=== PATIENT | female | born 1985 | race Caucasian/White ===

== ENCOUNTER 2018-04-05 16:13 | Observation (INO) ==
[2018-04-05] MEDS ORDERED: *HR* Nalbuphine 10 MG/ML AMPUL IV ONE ×3 (16:23→17:45)
--- NOTE | 2018-04-05 16:33 | Emergency Department Note ---
Disposition Clinical Impression: Spontaneous Disposition: Admitted As Inpatient Condition: Good Referrals: NONE,PCP [Primary Care Provider] - Forms: ED Satisfaction Letter Time of Disposition: 19:31 General Adult HPI - General Chief complaint: ED Vaginal Bleeding Stated complaint: vaginal bleeding, 9 wk preg Time Seen by Provider: 04/05/18 16:19 Source: patient Mode of arrival: ambulatory Limitations: no limitations Nursing Notes Reviewed: Yes Vital Signs Reviewed: Yes - History of Present Illness HPI Narrative: Patient is a 32-year-old female that presents the emergency department with vaginal bleeding and cramping. Patient states that she has been having abdominal cramping and bleeding for the past 2 weeks. States that she has been seen in the emergency department previously and was discharged home. She was seen by OB earlier today and had blood work and an ultrasound performed and was told that there is a blood clot surrounding the fetus. She states that her blood work was otherwise unremarkable. She states that she has been passing a significant amount of blood and clots. Patient states that she has intense abdominal cramping that is excruciating and pain. States that she has soaked multiple pads and has been somewhat lightheaded. Patient denies passing out today but states approximately 2 days ago when she had previously been seen that she had had an episode of syncope. Pain Scale: 10 - Related Data Home Medications Medication Instructions Recorded Confirmed Dha 1 tab PO DAILY 06/20/15 06/20/15 Previous Rx's Medication Instructions Recorded Docusate [Colace] 200 mg PO QPM #30 capsule 06/24/15 Ibuprofen [Motrin] 600 mg PO Q6HR PRN #60 tablet 06/24/15 OxyCODONE/APAP 5/325 [Percocet 1 each PO Q4HR PRN #30 tablet 06/24/15 5/325] Allergies Allergy/AdvReac Type Severity Reaction Status Date / Time No Known Allergies Allergy Verified 04/05/18 16:15 All systems ED: reviewed and negative except as stated. 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 Absent: respiratory distress, wheezes - Cardiovascular Cardiovascular exam: Present: regular rate, normal rhythm, normal heart sounds, +S1, +S2 - Abdominal Exam Abdominal exam: Present: soft, Non-Tender, normal bowel sounds - Neurological Exam Neurological exam: Present: alert, oriented X3 - Psychiatric Psychiatric exam: Present: normal affect, normal mood - Skin Skin exam: Present: warm, dry, intact Course - Reevaluation(s) Reevaluation #1: The patient was over at ultrasound the concrete float maker called this over to the ultrasound suite to show us the patient had been passing large clots the size of oranges. We had the concrete float maker discontinue trying to obtain ultrasound images and bring the patient back to the emergency department. - Consultations Consultation #1: I called and spoke with the on-call nursing laborer hoisting. She spoke with Dr. Hansen and he will come evaluate the patient here in the emergency department. Time: 17:58 Vital Signs Temperature 97.8 F 04/05/18 16:14 Pulse Rate 77 04/05/18 16:14 Respiratory Rate 18 04/05/18 16:14 Blood Pressure 161/89 04/05/18 16:14 O2 Sat by Pulse Oximetry 98 04/05/18 16:14 Temperature 97.8 F 04/05/18 16:19 Pulse Rate 73 04/05/18 19:00 Respiratory Rate 16 04/05/18 18:21 Blood Pressure 111/53 04/05/18 19:00 O2 Sat by Pulse Oximetry 100 04/05/18 18:21 Oxygen Delivery Oxygen Delivery Room Air Medical Decision Making - MDM Narrative Medical decision making narrative: The patient was admitted to the emergency department we will obtain a CBC, BMP, coags, beta hCG and a ultrasound to reevaluate the fetus. She will also be given Nubain for pain here in the ED. there is ongoing spontaneous based on the ultrasound findings. Dr. Mark from OB came and evaluated the patient at bedside and removed one small clot. The fetus was identified within the vaginal canal and being passed at this time. OB will admit the patient for further evaluation and management. - Lab Data Lab results reviewed: Yes I reviewed the patient's lab results. Result diagrams: 04/05/18 16:20 04/05/18 16:20 Lab Results 04/05/18 04/05/18 04/05/18 Range/Units 16:20 16:20 16:20 WBC 9.0 (4.3-11.1) K/mcL RBC 3.85 (3.82-4.97) M/mcL Hgb 11.5 (11.5-15.4) g/dL Hct 33.0 L (35.3-44.9) % MCV 85.7 (83.0-100.0) fL MCH 29.9 (28.0-33.3) pg MCHC 34.8 (31.6-35.5) g/dL RDW 12.7 (11.5-14.5) % Plt Count 214 (140-400) K/mcL MPV 10.3 (9.4-12.4) fL Immature Gran % 0.3 (0-4) % Seg Neutrophils % 77.5 % Lymphocytes % 16.0 % Monocytes % 5.8 % Eosinophils % 0.2 % Basophils % 0.2 % Neutrophils # 6.9 (1.6-8.9) K/mcL Lymphocytes # 1.4 (0.6-4.6) K/mcL Monocytes # 0.5 (0.0-1.3) K/mcL Eosinophils # 0.0 (0.0-0.6) K/mcL Basophils # 0.0 (0.0-0.2) K/mcL PT 11.7 (9.4-12.1) Seconds INR 1.0 APTT 23.6 L (26.0-36.0) Seconds Sodium 135 L (136-145) mEq/L Potassium 3.3 L (3.5-5.1) mEq/L Chloride 103 (98-107) mEq/L Carbon Dioxide 22 L (23-29) mEq/L BUN 9 (6-20) mg/dL Creatinine 0.61 (0.60-1.20) mg/dL Est GFR ( Amer) > 60 (> 60) Est GFR (Non-Af Amer) > 60 (> 60) BUN/Creatinine Ratio 15 (6-26) Glucose 100 (70-105) mg/dL Calculated Osmolality 279 L (280-300) Calcium 9.6 (8.6-10.3) mg/dL Beta HCG, Quant [id number] H (Less than 5) mIU/mL Blood Type 04/05/18 Range/Units 16:28 WBC (4.3-11.1) K/mcL RBC (3.82-4.97) M/mcL Hgb (11.5-15.4) g/dL Hct (35.3-44.9) % MCV (83.0-100.0) fL MCH (28.0-33.3) pg MCHC (31.6-35.5) g/dL RDW (11.5-14.5) % Plt Count (140-400) K/mcL MPV (9.4-12.4) fL Immature Gran % (0-4) % Seg Neutrophils % % Lymphocytes % % Monocytes % % Eosinophils % % Basophils % % Neutrophils # (1.6-8.9) K/mcL Lymphocytes # (0.6-4.6) K/mcL Monocytes # (0.0-1.3) K/mcL Eosinophils # (0.0-0.6) K/mcL Basophils # (0.0-0.2) K/mcL PT (9.4-12.1) Seconds INR APTT (26.0-36.0) Seconds Sodium (136-145) mEq/L Potassium (3.5-5.1) mEq/L Chloride (98-107) mEq/L Carbon Dioxide (23-29) mEq/L BUN (6-20) mg/dL Creatinine (0.60-1.20) mg/dL Est GFR ( Amer) (> 60) Est GFR (Non-Af Amer) (> 60) BUN/Creatinine Ratio (6-26) Glucose (70-105) mg/dL Calculated Osmolality (280-300) Calcium (8.6-10.3) mg/dL Beta HCG, Quant (Less than 5) mIU/mL Blood Type A NEGATIVE - Radiology Data Radiology results reviewed: Yes I reviewed the patient's radiology results. Obstetrics Ultrasound 04/05/18 16:21 IMPRESSION: Gestational sac with a live fetus noted in the endocervical canal in a patient with active bleeding during the exam. The fetus is bradycardic. The findings are most consistent with ongoing spontaneous . D/ / Juan Carlos Florez MD / Juan Carlos Florez MD Interpreting Provider: Juan Carlos Florez MD
[2018-04-05 16:41] LABS: Basophils % 0.2 %; Eosinophils % 0.2 %; Hemoglobin 11.5 g/dL (11.5-15.4); Immature Granulocytes % 0.3 % (0-4); Lymphocytes # 1.4 K/mcL (0.6-4.6); Mean Corpuscular HGB Conc 34.8 g/dL (31.6-35.5); Mean Corpuscular Hemoglobin 29.9 pg (28.0-33.3); Mean Corpuscular Volume 85.7 fL (83.0-100.0); Mean Platelet Volume 10.3 fL (9.4-12.4); Monocytes # 0.5 K/mcL (0.0-1.3); Monocytes % 5.8 %; Neutrophils # 6.9 K/mcL (1.6-8.9); Platelet Count 214 K/mcL (140-400); Red Blood Count 3.85 M/mcL (3.82-4.97); Red Cell Distribution Width 12.7 % (11.5-14.5); Segmented Neutrophils % 77.5 %
[2018-04-05 16:51] LABS: Prothrombin Time 11.7 Seconds (9.4-12.1)
[2018-04-05 16:54] LABS: Activated Partial Thrombo Time 23.6 Seconds (26.0-36.0)
[2018-04-05 17:09] LABS: BUN/Creatinine Ratio 15 (6-26); Blood Urea Nitrogen 9 mg/dL (6-20); Calcium 9.6 mg/dL (8.6-10.3); Carbon Dioxide 22 mEq/L (23-29); Chloride 103 mEq/L (98-107); Glucose 100 mg/dL (70-105); Osmolality,Calculated 279 (280-300); Potassium 3.3 mEq/L (3.5-5.1); Sodium 135 mEq/L (136-145); eGFR For African Americans > 60 (> 60); eGFR For Non-African Americans > 60 (> 60)
--- NOTE | 2018-04-05 17:57 | Emergency Department Note ---
Disposition Clinical Impression: First trimester bleeding Disposition: Still a Patient Forms: ED Satisfaction Letter General Adult HPI - General Chief complaint: ED Vaginal Bleeding Stated complaint: vaginal bleeding, 9 wk preg Time Seen by Provider: 04/05/18 16:19 Source: patient Mode of arrival: ambulatory Limitations: no limitations - History of Present Illness Pain Scale: 10 - Related Data Home Medications Medication Instructions Recorded Confirmed Dha 1 tab PO DAILY 06/20/15 06/20/15 Previous Rx's Medication Instructions Recorded Docusate [Colace] 200 mg PO QPM #30 capsule 06/24/15 Ibuprofen [Motrin] 600 mg PO Q6HR PRN #60 tablet 06/24/15 OxyCODONE/APAP 5/325 [Percocet 1 each PO Q4HR PRN #30 tablet 06/24/15 5/325] Allergies Allergy/AdvReac Type Severity Reaction Status Date / Time No Known Allergies Allergy Verified 04/05/18 16:15 Cardiovascular: Denies: chest pain Respiratory: Denies: dyspnea Gastrointestinal: Reports: abdominal pain Genitourinary: Reports: other (Vaginal bleeding) Past Medical History - Past Medical History Medical history: Reports: no medical history Surgical history: Reports: other (septum repair, polyp removal from sinus.) Psychiatric history: Reports: no psych history 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 : 2 Para: 1 Ab: 1 - Social History Smoking Status: Never smoker Smokeless Tobacco Status: No Alcohol use: Reports: none Drug use: Reports: none Physical Exam - General Limitations: no limitations General appearance: alert, in no apparent distress Course Vital Signs Temperature 97.8 F 04/05/18 16:14 Pulse Rate 77 04/05/18 16:14 Respiratory Rate 18 04/05/18 16:14 Blood Pressure 161/89 04/05/18 16:14 O2 Sat by Pulse Oximetry 98 04/05/18 16:14 Temperature 97.8 F 04/05/18 16:19 Pulse Rate 59 04/05/18 17:00 Respiratory Rate 18 04/05/18 17:00 Blood Pressure 127/71 04/05/18 17:00 O2 Sat by Pulse Oximetry 99 04/05/18 17:00 Oxygen Delivery Oxygen Delivery Room Air Medical Decision Making - Lab Data Result diagrams: 04/05/18 16:20 04/05/18 16:20 Lab Results 0704/05/18 04/05/18 Range/Units 16:20 16:20 16:20 WBC 9.0 (4.3-11.1) K/mcL RBC 3.85 (3.82-4.97) M/mcL Hgb 11.5 (11.5-15.4) g/dL Hct 33.0 L (35.3-44.9) % MCV 85.7 (83.0-100.0) fL MCH 29.9 (28.0-33.3) pg MCHC 34.8 (31.6-35.5) g/dL RDW 12.7 (11.5-14.5) % Plt Count 214 (140-400) K/mcL MPV 10.3 (9.4-12.4) fL Immature Gran % 0.3 (0-4) % Seg Neutrophils % 77.5 % Lymphocytes % 16.0 % Monocytes % 5.8 % Eosinophils % 0.2 % Basophils % 0.2 % Neutrophils # 6.9 (1.6-8.9) K/mcL Lymphocytes # 1.4 (0.6-4.6) K/mcL Monocytes # 0.5 (0.0-1.3) K/mcL Eosinophils # 0.0 (0.0-0.6) K/mcL Basophils # 0.0 (0.0-0.2) K/mcL PT 11.7 (9.4-12.1) Seconds INR 1.0 APTT 23.6 L (26.0-36.0) Seconds Sodium 135 L (136-145) mEq/L Potassium 3.3 L (3.5-5.1) mEq/L Chloride 103 (98-107) mEq/L Carbon Dioxide 22 L (23-29) mEq/L BUN 9 (6-20) mg/dL Creatinine 0.61 (0.60-1.20) mg/dL Est GFR ( Amer) > 60 (> 60) Est GFR (Non-Af Amer) > 60 (> 60) BUN/Creatinine Ratio 15 (6-26) Glucose 100 (70-105) mg/dL Calculated Osmolality 279 L (280-300) Calcium 9.6 (8.6-10.3) mg/dL Beta HCG, Quant [id number] H (Less than 5) mIU/mL Blood Type 04/05/18 Range/Units 16:28 WBC (4.3-11.1) K/mcL RBC (3.82-4.97) M/mcL Hgb (11.5-15.4) g/dL Hct (35.3-44.9) % MCV (83.0-100.0) fL MCH (28.0-33.3) pg MCHC (31.6-35.5) g/dL RDW (11.5-14.5) % Plt Count (140-400) K/mcL MPV (9.4-12.4) fL Immature Gran % (0-4) % Seg Neutrophils % % Lymphocytes % % Monocytes % % Eosinophils % % Basophils % % Neutrophils # (1.6-8.9) K/mcL Lymphocytes # (0.6-4.6) K/mcL Monocytes # (0.0-1.3) K/mcL Eosinophils # (0.0-0.6) K/mcL Basophils # (0.0-0.2) K/mcL PT (9.4-12.1) Seconds INR APTT (26.0-36.0) Seconds Sodium (136-145) mEq/L Potassium (3.5-5.1) mEq/L Chloride (98-107) mEq/L Carbon Dioxide (23-29) mEq/L BUN (6-20) mg/dL Creatinine (0.60-1.20) mg/dL Est GFR ( Amer) (> 60) Est GFR (Non-Af Amer) (> 60) BUN/Creatinine Ratio (6-26) Glucose (70-105) mg/dL Calculated Osmolality (280-300) Calcium (8.6-10.3) mg/dL Beta HCG, Quant (Less than 5) mIU/mL Blood Type A NEGATIVE Attestation Statement - Attestation Attestation: I examined this patient and my medical decision-making was reviewed with the Resident Physician. I agree with the documented findings, disposition and treatment plan as described except to the extent set forth below. 32 year old bozena who is current 9 weeks and was most recently evaluted for twin gestation. Jose has a septate uterus and has been follwing with Dr. varsha Hector. Tatyana has been closely following with REGINALDO and was last evaluted 2 days ago with US and earlier this morning. It appaers she is passing large thick clots at home and is profusely cramping and is passing blood clots the size of golf balls to apples. Tatyana states that she has been getting through about 1-2 pads/hr with large clot expelling. Tatyana states that she was told that one of her IUP on miscarreid about one week ago and the half of her uterus was filled with blood. Jodee states that he is opiate niave and athletic and thi sis the worst pain that she has ever experinced. She is hemodynamically stable and hgb is stable. Patient has been treated with nubain for pain therapy. Tatyana was taken to OB for ultraouns and it appears that it cannot be done transvaginally because there is a large blood clot sitting inthe canal, it is difficult to assess wther this is the previous miscarried IUP or if ths is the current viable IUP. Tryin to obtain a transab US it is difficult to assess and evalute for viable IUP because of bowel gas and possible retro-position uterus. No dependent blood in morrisons pouch or splenorenal area. WE did remove on blood clot fromthe vaginal canal that she had passed it appears that it is likely POC. WE have sent that for testing. OBGYN consult for clot retrieval.
[2018-04-05] MEDS: *HR* Morphine 2 MG/ML SYRINGE IVP ONE ×2 (18:25→18:52)
[2018-04-05] MEDS ORDERED: *HR* Propofol 200 MG/20 ML VIAL IVP ONE (19:24)
[2018-04-05] MEDS ORDERED: *HR* FentaNYL (PF) 100 MCG/2 ML VIAL ONE (19:24)
[2018-04-05] MEDS ORDERED: Dexamethasone 4 MG/ML VIAL ONE (19:26)
[2018-04-05] MEDS ORDERED: *HR* Succinylcholine 200 MG/10 ML VIAL IVP ONE (19:26)
[2018-04-05] MEDS ORDERED: Lidocaine -MPF 2% 2 ML VIAL ONE (19:26)
[2018-04-05] MEDS ORDERED: Ondansetron 4 MG/2 ML VIAL ONE ×2 (19:26→19:46)
[2018-04-05] MEDS ORDERED: Ondansetron 4 MG/2 ML VIAL IVP ONE (19:40)
[2018-04-05] MEDS ORDERED: *HR* HYDROmorphone 20 MG/20 ML PCA IVC PRN (19:57)
[2018-04-05] MEDS: Ringers Solution, Lactated 1,000 ML IVC SCH (21:18)
--- NOTE | 2018-04-05 22:05 | OB/GYN History & Physical ---
Date of Encounter: 04/05/18 Time of Encounter: 22:01 Assessment and Plan (1) Threatened in first trimester Current visit: Yes Status: Acute Pt presents with bright red vaginal bleeding and passage of large clots. She was seen in office earlier today with viable IUP and + FHT's. Adjacent 8cm clot c/w subchorionic hemorrhage was noted. FHT's were now 68 when they had been 168 earlier. D/w pt options she was still having bleeding and labor like intense pains. Advised pt that most likely ab was inevitable however given + FHT's expectant mgmt was advised at this time. Will admit. Will give IVF and keep NPO. Will follow for worse bleeding and recheck CBC in am. History of Present Illness Chief complaint: vaginal bleeding 9 weeks gestation, threatend HPI: Ms. Lennon is a 32 year old female female at 9w1 day gestation seen in office today for ER f/u vaginal bleeding in early . In office today viable IUP was noted with active FHT's 160's. Large 8x2.3 cm subchorionic hemorrhage was noted. Bleeding was light. Shortly after leaving office pt began having severe cramps and passage of large clots and tissue. She felt like she was in labor. She presented to ER and radiology u/s showed large amt of clot and IUP still in uterus, FHT's now 68. Pelvic exam showed clot and thin red blood. Chux pad was saturated and pt passed several clots that were grape to plum size. Past Med Surg Social Fam HX - Past Medical History Source: patient, old records reviewed Medical history: no medical history Additional medical history: POLYPS REMOVED 3 YRS AGO Psychiatric history: no psych history - Past Surgical History Surgical History: other (septum repair, polyp removal from sinus.) Additional surgical history: B/L ARMS FX, LEFT ARM FX REPAIR ABOUT 12 YRS AGO - Social History Smoking Status: Never smoker Smokeless Tobacco Status: No Alcohol use: none Drug use: none Obstetrical History - Pregnancies : 2 Para: 1 Medications and Allergies Vit Calc,Iron,Folic [ Vitamins] 1 tab PO DAILY 04/05/18 [ History] 3 Allergy/AdvReac Type Severity Reaction Status Date / Time No Known Allergies Allergy Verified 04/05/18 16:15 Exam - Vital Signs Vital signs: Initial Vital Signs Temp Pulse Resp BP Pulse Ox 97.8 F 77 18 161/89 98 04/05/18 16:14 04/05/18 16:14 04/05/18 16:14 04/05/18 16:14 04/05/18 16:14 - Constitutional Constitutional: well developed, no acute distress - HEENT HEENT: EOMI, PERRL - Neck Neck exam: full ROM - Lungs Respiratory exam: CTAB - Cardiovascular Cardiovascular exam: RRR - Abdomen Abdomen: Present: bowel sounds normal Abdomen detail: right lower quadrant: tenderness, left lower quadrant: tenderness - Extremities Extremities exam: full ROM Deep Tendon Reflex Grade: 2+ Normal Results Result Diagrams: 04/05/18 16:20 04/05/18 16:20 Abnormal lab results Hct 33.0 % (35.3-44.9) L 04/05/18 16:20 APTT 23.6 Seconds (26.0-36.0) L 04/05/18 16:20 Sodium 135 mEq/L (136-145) L 04/05/18 16:20 Potassium 3.3 mEq/L (3.5-5.1) L 04/05/18 16:20 Carbon Dioxide 22 mEq/L (23-29) L 04/05/18 16:20 Calculated Osmolality 279 (280-300) L 04/05/18 16:20 Beta HCG, Quant [id number] mIU/mL (Less than 5) H 04/05/18 16:20 All other labs normal.
[2018-04-06] MEDS: Ringers Solution, Lactated 1,000 ML IVC SCH ×3 (05:23→16:37)
[2018-04-06 06:57] LABS: Basophils % 0.2 %; Eosinophils # 0.1 K/mcL (0.0-0.6); Hematocrit 24.6 % (35.3-44.9); Immature Granulocytes % 0.4 % (0-4); Lymphocytes # 1.3 K/mcL (0.6-4.6); Lymphocytes % 25.2 %; Mean Corpuscular HGB Conc 34.1 g/dL (31.6-35.5); Mean Corpuscular Hemoglobin 29.6 pg (28.0-33.3); Mean Corpuscular Volume 86.6 fL (83.0-100.0); Mean Platelet Volume 10.2 fL (9.4-12.4); Monocytes # 0.5 K/mcL (0.0-1.3); Monocytes % 9.8 %; Neutrophils # 3.2 K/mcL (1.6-8.9); Platelet Count 160 K/mcL (140-400); Red Blood Count 2.84 M/mcL (3.82-4.97); Red Cell Distribution Width 12.8 % (11.5-14.5); Segmented Neutrophils % 63.4 %
[2018-04-06 06:58] LABS: Hemoglobin 8.4 g/dL (11.5-15.4)
[2018-04-06] MEDS: Acetaminophen 325 MG TABLET PO PRN ×2 (07:00→13:59)
--- NOTE | 2018-04-06 12:50 | OB/GYN Progress Note ---
Date of Encounter: 04/06/18 Time of Encounter: 12:47 - Assessment and Plan (1) Spontaneous Current Visit: Yes Status: Acute I discussed with her that she is having a spontaneous miscarriage. I counseled them on expectant management, using meds i.e cytotec or surgery i.e D&C. After going over the options in detail, she has decided to try medical therapy first before D&C chano since she is not bleeding as much. She is aware that if we start cytotec, she might have heavy bleeding requiring D&C. We discussed that her H&H dropped from 11 to 8. I advised doing another CBC now and if it is below 7, I recommend blood transfusion. CBC order placed. She might benefit from blood before D&C but no decision has been made at this time. She can eat now and we will wait 8 hrs after food to start cytotec so that if we have to do D&C, the risk of aspiration is low. Subjective - Subjective Interval history: patient's bleeding has subsided significantly. Nursing reports place her bleeding as spotting on her pad. She had her U/S which showed the subchorionic hemorrhage has resolved and there is no heart rate. She feels well, she is asymptomatic, she is very hungry and wants to eat. Family at bedside. Objective - Vital Signs Latest vital signs: Vital Signs Temp Pulse Resp BP Pulse Ox 04/06/18 12:19 98.4 F 62 14 113/63 99 04/06/18 07:43 98.7 F 72 14 99/57 98 04/06/18 05:22 98.9 F 64 16 93/46 100 04/05/18 21:30 98.4 F 64 16 99/53 99 04/05/18 20:20 98.1 F 72 16 106/51 100 Intake and Output 04/05/18 04/06/18 04/06/18 23:59 07:59 15:59 Intake Total 1000 / 1000 1000 / 1000 Output Total 345 / 345 400 / 400 Balance -345 / -345 600 / 600 1000 / 1000 Intake: IV Fluids 1000 / 1000 1000 / 1000 Lactated Ringers 1,000 ML @ 125 1000 / 1000 1000 / 1000 mls/hr IVC .Q8H [facility] Rx#: [id number] Output: Urine 250 / 250 400 / 400 Estimated Blood Loss 95 / 95 Other: Weight 69.5 kg Patient Weight 04/06/18 23:59 Weight 69.5 kg - I&O's I&O's: Intake & Output 04/03/18 04/04/18 04/05/18 04/06/18 23:59 23:59 23:59 23:59 Intake Total 1999 Output Total 345 / 345 400 / 400 Balance -345 / -345 1600 / 1600 Weight 69.5 kg - Labs Labs: Abnormal lab results RBC 2.84 M/mcL (3.82-4.97) L 04/06/18 06:46 Hgb 8.4 g/dL (11.5-15.4) L D 04/06/18 06:46 Hct 24.6 % (35.3-44.9) L 04/06/18 06:46 APTT 23.6 Seconds (26.0-36.0) L 04/05/18 16:20 Sodium 135 mEq/L (136-145) L 04/05/18 16:20 Potassium 3.3 mEq/L (3.5-5.1) L 04/05/18 16:20 Carbon Dioxide 22 mEq/L (23-29) L 04/05/18 16:20 Calculated Osmolality 279 (280-300) L 04/05/18 16:20 Beta HCG, Quant [id number] mIU/mL (Less than 5) H 04/05/18 16:20 Consult Discharge Plan - Plan Referrals: NONE,PCP [Primary Care Provider] -
[2018-04-06 14:40] LABS: Hematocrit 24.7 % (35.3-44.9); Hemoglobin 8.4 g/dL (11.5-15.4)
[2018-04-06] MEDS: Ibuprofen 600 MG TABLET PO PRN ×2 (16:36→22:38)
[2018-04-06] MEDS ORDERED: miSOPROStol 100 MCG TABLET PO SCH (22:00)
[2018-04-07] MEDS: Ringers Solution, Lactated 1,000 ML IVC SCH (00:24)
[2018-04-07] MEDS: Ibuprofen 600 MG TABLET PO PRN (07:24)
--- NOTE | 2018-04-07 07:25 | OB/GYN Progress Note ---
Date of Encounter: 04/07/18 Time of Encounter: 07:22 - Assessment and Plan (1) Spontaneous Current Visit: Yes Status: Acute ok for patient to have breakfast, I'm ok with her being discharged later today after monitoring her bleeding, she should return in 1 week for a repeat U/S in the office stop the [employer] Subjective - Subjective Interval history: Patient is doing very well this AM. She received 600mcg of cytotec sublingually and she passed the POC @ 3AM. She has not bled since then. She had a fever that resolved shortly after the cytotec. Objective - Vital Signs Latest vital signs: Vital Signs Temp Pulse Resp BP Pulse Ox 04/07/18 02:32 99.6 F 77 16 97/47 99 04/07/18 00:15 100.5 F H 75 18 104/48 99 04/06/18 23:20 100.6 F H 04/06/18 23:00 99.9 F H 04/06/18 21:51 98.6 F 74 16 114/63 100 04/06/18 12:19 98.4 F 62 14 113/63 99 04/06/18 07:43 98.7 F 72 14 99/57 98 Intake and Output 04/06/18 04/06/18 04/07/18 15:59 23:59 07:59 Intake Total 1000 / 1000 1400 / 1400 1000 / 1000 Output Total 1600 / 1600 Balance 1000 / 1000 -200 / -200 1000 / 1000 Intake: IV Fluids 1000 / 1000 1000 / 1000 1000 / 1000 Lactated Ringers 1,000 ML @ 125 1000 / 1000 1000 / 1000 1000 / 1000 mls/hr IVC .Q8H COUNTS INCLUDE 234 BEDS AT THE [facility] Rx#: [id number] Oral 400 / 400 Output: Urine 1600 / 1600 - I&O's I&O's: Intake & Output 04/04/18 04/05/18 04/06/18 04/07/18 23:59 23:59 23:59 23:59 Intake Total 3400 / 3400 1000 / 1000 Output Total 345 / 345 2000 / 2000 Balance -345 / -345 1400 / 1400 1000 / 1000 Weight 69.5 kg - Labs Labs: Abnormal lab results RBC 2.84 M/mcL (3.82-4.97) L 04/06/18 06:46 Hgb 8.4 g/dL (11.5-15.4) L 04/06/18 14:33 Hct 24.7 % (35.3-44.9) L 04/06/18 14:33 APTT 23.6 Seconds (26.0-36.0) L 04/05/18 16:20 Sodium 135 mEq/L (136-145) L 04/05/18 16:20 Potassium 3.3 mEq/L (3.5-5.1) L 04/05/18 16:20 Carbon Dioxide 22 mEq/L (23-29) L 04/05/18 16:20 Calculated Osmolality 279 (280-300) L 04/05/18 16:20 Beta HCG, Quant [id number] mIU/mL (Less than 5) H 04/05/18 16:20 Consult Discharge Plan - Plan Referrals: NONE,PCP [Primary Care Provider] -
[2018-04-07] MEDS ORDERED: Ketorolac 30 MG/ML VIAL IVP ONE (08:44)
[2018-04-07 09:34] VITALS: BP 106/61
== END 2018-04-07 10:15 | disposition home or self-care (01) ==
LOC: EMEROO 16:13 → 1NENUOBS 16:13
PROVIDERS: ADMIT Obstetrics & Gynecology; ATTEND Obstetrics & Gynecology